=== PATIENT | female | born 1985 | race American Indian/Alaskan Native ===

== ENCOUNTER 2019-11-20 21:30 | Emergency (ER) | payer SELFPAY ==
[2019-11-20 21:40] VITALS: BP 124/72
--- NOTE | 2019-11-20 21:51 | Emergency Department Report ---
Blank Doc - Documentation Documentation: 34-year-old female that presents with URI symptoms. This initial assessment/diagnostic orders/clinical plan/treatment(s) is/are subject to change based on patient's health status, clinical progression and re- assessment by fellow clinical providers in the ED. Further treatment and workup at subsequent clinical providers discretion. Patient/guardians urged not to elope from the ED as their condition may be serious if not clinically assessed and managed. Initial orders include: 1- Patient sent to [facility] for further evaluation and treatment 2- CXR
== END 2019-11-21 02:20 | disposition left against medical advice (07) ==
LOC: ED 21:30
DX: R06.02 Shortness of breath (principal); Z53.21 Procedure and treatment not carried out due to patient leaving prior to being seen by health care provider